=== PATIENT | female | born 2000 | race Caucasian/White ===

== ENCOUNTER 2020-04-05 22:06 | Emergency (ER) | payer SELFPAY ==
[~2020-04-05] VITALS: Ht 152.4 cm; Wt 58.6 kg
[~2020-04-05 22:06] MED LIST: ZOLOFT 100MG100 MG
[2020-04-05] MEDS ORDERED: ZOLOFT 25MG25 MG PO (23:02)
[2020-04-06 00:39] VITALS: BP 114/70; PULSE 68; TEMP 98
== END 2020-04-06 00:39 | disposition home or self-care (01) ==
LOC: COL.ER 22:06
DX: R51 Headache (principal); H53.8 Other visual disturbances

== ENCOUNTER 2020-04-25 22:22 | Emergency (ER) | payer SELFPAY ==
[~2020-04-25] VITALS: Ht 152.4 cm; Wt 58.6 kg
[~2020-04-25 22:22] MED LIST changes: +ZOLOFT 25MG25 MG PO
[2020-04-25 23:16] VITALS: TEMP 99
[2020-04-26 02:19] VITALS: BP 110/73; PULSE 72
== END 2020-04-26 02:19 | disposition home or self-care (01) ==
LOC: COL.ER 22:22
DX: R00.2 Palpitations (principal)

== ENCOUNTER 2020-09-25 17:45 | Emergency (ER) | payer MEDICAID ==
[~2020-09-25] VITALS: Ht 154.9 cm; Wt 58.2 kg
[2020-09-25 17:59] VITALS: TEMP 97.7
[2020-09-25 21:15] LABS: BASO % 0.3 % (0.0-2.0); EOS # 0.1 (0.0-0.7); EOS % 1.5 % (0-4.0); GRAN # 3.3 (1.4-6.5); GRAN % 56.6 % (42.2-75.2); HEMOGLOBIN 11.4 g/dl (12.0-15.0); LYMPH # 1.9 (1.2-3.4); LYMPH % 32.5 % (20.0-51.0); MEAN CELL VOLUME 89 fl (80.0-95.0); MEAN CORPUSCULAR HEMOGLOBIN 30 pg (26.0-32.0); MEAN CORPUSCULAR HGB CONC 34 g/dl (33.0-37.0); MEAN PLATELET VOLUME 11.7 fl (7.4-10.4); MONO # 0.5 (0.1-0.6); MONO % 8.6 % (1.7-9.3); PLATELET COUNT 172 K/mm3 (130-400); RED BLOOD COUNT 3.76 M/mm3 (4.10-5.30); REDCELL DISTRIBUTION WIDTH-CV 13.3 % (11.5-14.5)
[2020-09-25 21:16] LABS: HEMATOCRIT 33.3 % (35.0-45.0)
[2020-09-25 21:25] LABS: ALBUMIN 3.7 gm/dL (3.5-5.0); BILIRUBIN,TOTAL 0.2 mg/dL (0.0-1.0); CALCIUM 8.7 mg/dL (8.4-10.2); CREATININE, serum 0.46 (0.52-1.25); MAGNESIUM 1.7 mg/dL (1.6-2.3); POTASSIUM 3.9 mmol/L (3.4-5.0); TOTAL PROTEIN 6.9 gm/dL (6.4-8.2)
[2020-09-25 21:56] LABS: TSH w REFLEX 6.68 uIU/mL (0.465-4.680)
[2020-09-25 22:53] VITALS: BP 92/60; PULSE 71
== END 2020-09-25 22:53 | disposition home or self-care (01) ==
LOC: COL.ER 17:45
PROVIDERS: Emergency Medicine
DX: O99.412 Diseases of the circulatory system complicating pregnancy, second trimester (principal); R00.2 Palpitations; R07.9 Chest pain, unspecified; Z3A.19 19 weeks gestation of pregnancy; Z88.1 Allergy status to other antibiotic agents

== ENCOUNTER 2020-09-27 13:44 | Emergency (ER) | payer MEDICAID ==
[~2020-09-27] VITALS: Ht 154.9 cm; Wt 57.7 kg
[2020-09-27 13:47] VITALS: TEMP 98.6
[2020-09-27 15:00] LABS: ALBUMIN 3.9 gm/dL (3.5-5.0); BILIRUBIN,TOTAL 0.3 mg/dL (0.0-1.0); CALCIUM 9.3 mg/dL (8.4-10.2); CREATININE, serum 0.57 (0.52-1.25); POTASSIUM 3.8 mmol/L (3.4-5.0); TOTAL PROTEIN 7.3 gm/dL (6.4-8.2)
[2020-09-27 15:03] LABS: BASO % 0.1 % (0.0-2.0); EOS % 0.6 % (0-4.0); GRAN # 4.9 (1.4-6.5); GRAN % 70.6 % (42.2-75.2); HEMOGLOBIN 12.1 g/dl (12.0-15.0); LYMPH # 1.4 (1.2-3.4); LYMPH % 20.8 % (20.0-51.0); MEAN CELL VOLUME 88 fl (80.0-95.0); MEAN CORPUSCULAR HEMOGLOBIN 31 pg (26.0-32.0); MEAN CORPUSCULAR HGB CONC 35 g/dl (33.0-37.0); MEAN PLATELET VOLUME 12.2 fl (7.4-10.4); MONO # 0.5 (0.1-0.6); MONO % 7.3 % (1.7-9.3); PLATELET COUNT 181 K/mm3 (130-400); RED BLOOD COUNT 3.93 M/mm3 (4.10-5.30); REDCELL DISTRIBUTION WIDTH-CV 13.2 % (11.5-14.5)
[2020-09-27 15:04] LABS: HEMATOCRIT 34.5 % (35.0-45.0)
[2020-09-27 15:31] LABS: THYROID STIMULATING HORMONE 4.36 uIU/mL (0.465-4.680)
[2020-09-27 16:30] LABS: COLLECTION METHOD CLEAN CATCH
[2020-09-27 16:51] LABS: MUCOUS Present /lpf; PH 6 (5-8); URINE APPEARANCE Hazy; URINE BACTERIA Rare /hpf; URINE BILIRUBIN Negative (NEGATIVE); URINE BLOOD Negative (NEGATIVE); URINE COLOR Yellow; URINE GLUCOSE Negative (NEGATIVE); URINE KETONE Negative (NEGATIVE); URINE LEUKOCYTE ESTERASE 1+ (NEGATIVE); URINE NITRATE Negative (NEGATIVE); URINE PROTEIN(semi-quant) Negative (NEGATIVE); URINE RBC 0-2 /hpf; URINE UROBILINOGEN Negative (NEGATIVE)
[2020-09-27] MEDS ORDERED: PHENERGAN 25 TA25 MG PO (17:29)
[2020-09-27 17:37] VITALS: BP 100/57; PULSE 87
== END 2020-09-27 17:45 | disposition home or self-care (01) ==
LOC: COL.ER 13:44
PROVIDERS: Nurse Practitioner
DX: O99.412 Diseases of the circulatory system complicating pregnancy, second trimester (principal); R00.1 Bradycardia, unspecified; R07.9 Chest pain, unspecified; R51.9 Headache, unspecified; Z3A.20 20 weeks gestation of pregnancy; Z88.1 Allergy status to other antibiotic agents
CPT/HCPCS: J2550; J7030